=== PATIENT | male | born 1985 | race Two or more races ===

== ENCOUNTER → 2022-01-24 | Emergency (ER) | payer MEDICAID, OTHER ==
[~2022-01-24] VITALS: Ht 180.3 cm; Wt 77.1 kg
[~2022-01-24] MED LIST: LORAZEPAM INJ 2 MG/ML VIAL IM/IV ONE; LORAZEPAM INJ 2 MG/ML VIAL ONE
--- NOTE | 2022-01-24 04:06 | NUR ---
PATRICE FROM HOME C/O "TAKING TO MUCH THC OIL HAVING A PANIC ATTACK". PT TOLERATING R/A AT 97%. CONNECTED PT TO POX AND MONITOR. SAFETY MEASURES IN PLACE
--- NOTE | 2022-01-24 04:34 | NUR ---
DR. LAW DUDLEY AT PT'S BEDSIDE
--- NOTE | 2022-01-24 05:18 | NUR ---
PT SLEEPING IN BED. RESPIRATIONS ARE EVEN AND NONLABORED. VSS. WILL CONTINUE TO MONITOR.
--- NOTE | 2022-01-24 06:47 | NUR ---
UPDATED LIVE () [phone] ON PT'S CURRENT CONDITION
--- NOTE | 2022-01-24 08:52 | NUR ---
SW called [facility] and spoke to Intake to ensure they have received the clinicals. SW was informed that they did receive the clinicals and the community health educator is reviewing them now. Noted.
--- NOTE | 2022-01-24 11:58 | NUR ---
Patient discharged to home in stable condition. Written and verbal after care instructions given. Patient verbalizes understanding of instruction.Pt denies SI.
[2022-01-24 11:59] VITALS: BP 128/79
== END | disposition home or self-care (01) ==
LOC: ER 04:05
DX: F12.929 Cannabis use, unspecified with intoxication, unspecified (principal); G47.00 Insomnia, unspecified
CPT/HCPCS: 93005; 96372; 99285; J2060